=== PATIENT | female | born 1950 | race Caucasian/White ===

== ENCOUNTER → 2016-09-07 | Day surgery (SDC) | payer MEDICARE, OTHER ==
[~2016-09-07] MED LIST: ASPIRIN325 MG PO; BACLOFEN 10MG T10 MG PO; CERTAGEN1 EACH PO; FEOSOL325 MG PO; HCTZ12.5 MG PO; LAXATIVE OF CHOICE; NORVASC10 MG PO; PERCOCET 5-3251 EACH PO; PREVACID30 M1 PO; PREVACID30 MG PO; TYLENOL325 M1 PO
[2016-09-07 08:03] LABS: HCT 42.6 % (37.0-47.0); HGB 14.5 g/dl (12.5-16.0); MCH 29.9 pg (25.0-31.0); MCV 87.8 fL (78.0-100.0); MPV 8.8 fL (6.0-9.5); RBC 4.85 M/uL (4.20-5.40); RDW 13.1 % (11.5-14.0); WBC 10.8 K/uL (4.0-10.5)
[2016-09-07 08:30] LABS: ALBUMIN 4.9 g/dL (3.4-4.8); BILIRUBIN - TOTAL 0.5 mg/dL (0.1-1.0); CREATININE 0.8 mg/dL (0.5-1.0); POTASSIUM 3.2 mmol/L (3.5-5.1); TOTAL PROTEIN 7.9 g/dL (6.4-8.3)
== END | disposition home or self-care (01) ==
LOC: FAS 07:39
PROVIDERS: Surgery
DX: K80.10 Calculus of gallbladder with chronic cholecystitis without obstruction (principal); K82.8 Other specified diseases of gallbladder; K21.9 Gastro-esophageal reflux disease without esophagitis; M13.862 Other specified arthritis, left knee; M13.861 Other specified arthritis, right knee; F41.9 Anxiety disorder, unspecified; F32.9 Major depressive disorder, single episode, unspecified; I10 Essential (primary) hypertension; Z98.890 Other specified postprocedural states; Z90.710 Acquired absence of both cervix and uterus; Z80.0 Family history of malignant neoplasm of digestive organs; Z82.49 Family history of ischemic heart disease and other diseases of the circulatory system; Z79.899 Other long term (current) drug therapy; Z88.8 Allergy status to other drugs, medicaments and biological substances; Z88.6 Allergy status to analgesic agent
CPT/HCPCS: 36415; 80053; 88304; J1170; J2405; J2704; J2710; J3010

== ENCOUNTER 2016-09-09 06:58 | Emergency (ER) | payer MEDICARE, OTHER ==
[2016-09-09 07:38] LABS: BASOPHIL 0.2 % (0-2); EOSINOPHIL 1.3 % (0-7); HCT 40.5 % (37.0-47.0); HGB 13.7 g/dl (12.5-16.0); LYMPHOCYTE 31.9 % (15-48); MCH 30.4 pg (25.0-31.0); MCHC 33.8 g/dL (32.0-36.0); MONOCYTE 6.4 % (0-12); MPV 9.1 fL (6.0-9.5); NEUTROPHIL 60.2 % (41-80); PLT 362 K/uL (150-400); RDW 13.2 % (11.5-14.0); WBC 11.2 K/uL (4.0-10.5)
[2016-09-09 07:53] LABS: ALBUMIN 4.1 g/dL (3.4-4.8); BILIRUBIN - TOTAL 0.5 mg/dL (0.1-1.0); CREATININE 0.8 mg/dL (0.5-1.0); GLOBULIN (CALCULATION) 2.8 g/dL (2.2-4.2); POTASSIUM 3.2 mmol/L (3.5-5.1); TOTAL PROTEIN 6.9 g/dL (6.4-8.3)
== END 2016-09-09 08:42 | disposition home or self-care (01) ==
LOC: FER 06:58
PROVIDERS: Emergency Medicine
DX: R11.0 Nausea (principal); I10 Essential (primary) hypertension; K21.9 Gastro-esophageal reflux disease without esophagitis; Z90.49 Acquired absence of other specified parts of digestive tract
CPT/HCPCS: 36415; 80053; 83690; 85025; J2405

== ENCOUNTER 2021-12-16 13:03 | Emergency (ER) | payer MEDICARE, OTHER ==
[~2021-12-16 13:03] MED LIST changes: +IBUPROFEN800 MG PO; +ROBAXIN750 MG PO
== END 2021-12-16 16:13 | disposition left against medical advice (07) ==
LOC: FER 13:03
DX: R42 Dizziness and giddiness (principal); Z53.29 Procedure and treatment not carried out because of patient's decision for other reasons
CPT/HCPCS: 99281